=== PATIENT | female | born 1990 | race Two or more races ===

== ENCOUNTER 2020-12-01 05:37 | Emergency (ER) | payer MEDICAID ==
[~2020-12-01] VITALS: Ht 160 cm; Wt 79.3 kg
--- NOTE | 2020-12-01 05:53 | NUR ---
RAHEL FROM [facility]. PT WENT TO HOSPITAL FOR LEFT FACIAL NUMBNESS, JAW BEGAN TO GO NUMB AND BEGAN TO GET WORSE AND THEN MOVED TO [place]. PT DIAGNOSED WITH CEREBRAL VENOUS THROMBOSIS AT [facility] PT A HIGH RISK AND IS 38 WEEKS . DUE DATE IS 12/13/2020 [facility] STATES PT WAS HAVING MILD CONTRACTIONS AT [facility] BUT THEY STOPPED ONCE SHE WAS TRANSPORTED. PT ON 14.3CC HEPERIN DRIP. ATTACHED TO CARD/SP02/BP MOMNITORS, VSS, NADN. USING TRANSLATER [id number] BED IN LOW POSITION, RAILS ENGAGED. CALL LIGHT ON LAP. NADN AT MOMENT. WCTM.
--- NOTE | 2020-12-01 06:00 | NUR ---
ERMD AT BEDSIDE FOR EVAL.
[2020-12-01] MEDS ORDERED: HEPARIN wt. based STROKE protocol MC PRN (06:10)
--- NOTE | 2020-12-01 06:14 | NUR ---
INSTRUCTED TO CONTINUE HEPERIN DRIP THAT PT CAME IN WITH SINCE IT WAS ALMOST DONE.
--- NOTE | 2020-12-01 06:17 | NUR ---
A&OX4, NO NEURO DEFICITS. ER PERFORMED NEURO EXAM
--- NOTE | 2020-12-01 06:17 | NUR ---
PT ON LEFT LATERAL POSITION. MOTHER AT BEDSIDE.
--- NOTE | 2020-12-01 06:28 | NUR ---
PT WEIGHED AT [facility] OF 79.3KG WEIGHT IN TRIAGE WAS NOT PT'S ESTIMATE.
--- NOTE | 2020-12-01 06:29 | NUR ---
SPOKE TO L&D NURSE JOANNA AND WAS TOLD NURSE WILL BE DOWN TO EVALUATE PT AND HER FETUS.
[2020-12-01] MEDS ORDERED: SODIUM CHLORIDE FLUSH 10ML SYR IVF ONE (06:30)
[2020-12-01] MEDS ORDERED: PLEASE ENTER ALLERGIES MC SCH (06:30)
[2020-12-01] MEDS ORDERED: DO NOT GIVE XX PRN (06:30)
--- NOTE | 2020-12-01 06:32 | NUR ---
HAS PT RUNNING AT 18UNITS/KG/HR
[2020-12-01 06:33] LABS: BASOPHILS % (AUTO) 0 % (0-1); EOSINOPHILS % (AUTO) 0 % (1-7); LYMPHOCYTES % (AUTO) 20 % (22-44); MEAN CORPUSCULAR HEMOGLOBIN 32.4 pg (27.0-34.8); MEAN CORPUSCULAR HGB CONC 33.9 g/dL (32.4-35.8); MEAN PLATELET VOLUME 7.7 fL (7.4-10.4); MONOCYTES % (AUTO) 5 % (2-9); NEUTROPHILS % (AUTO) 75 % (42-75); PLATELET COUNT 245 x10^3/uL (130-400); RED BLOOD COUNT 3.64 x10^6/uL (3.82-5.3); RED CELL DISTRIBUTION WIDTH 15.2 % (9.6-15.2)
--- NOTE | 2020-12-01 06:42 | NUR ---
STOPPING HEPERIN FOR 1HOUR AT THIS POINT
[2020-12-01 06:44] LABS: ALBUMIN 2.6 g/dL (3.4-5.0); ANION GAP 12 mmol/L (5-15); CALCIUM 9.2 mg/dL (8.5-10.1); CHLORIDE 107 mmol/L (98-107)
[2020-12-01 06:49] LABS: ALANINE AMINOTRANSFERASE 33 U/L (12-78); ALKALINE PHOSPHATASE 148 U/L (45-117); BILIRUBIN,TOTAL 0.6 mg/dL (0.2-1.0); CREATININE 0.65 mg/dL (0.55-1.02); TOTAL PROTEIN 7.1 g/dL (6.4-8.2)
--- NOTE | 2020-12-01 06:53 | NUR ---
[facility].
[2020-12-01] MEDS ORDERED: HEPARIN 25,000 UNITS/250ML PMX 250 ML IV PRN (07:00)
--- NOTE | 2020-12-01 07:20 | NUR ---
PT ABLE TO AMBULATE STEADILY TO BATHROOM.
--- NOTE | 2020-12-01 07:46 | NUR ---
PT OB IN [facility] IS LATRICE. PT IN MRI AT THIS TIME.
[2020-12-01] MEDS ORDERED: PRENATAL PO (07:55)
[2020-12-01] MEDS ORDERED: IRON PO (07:55)
[2020-12-01] MEDS ORDERED: HEPARIN 25,000 UNITS/250ML PMX 250 ML ONE (08:27)
--- NOTE | 2020-12-01 08:47 | NUR ---
PT BACK IN ROOM FROM MRI. HEPARIN RESTARTED PER EMAR. PT SISTER IN LAW AT BEDSIDE.
--- NOTE | 2020-12-01 08:49 | NUR ---
DR. CHARLES AT [facility] TO CALL BACK TO SEE IF WILL ACCEPT PT. PER L&D, DR. DOMINGUEZ DOESN'T TAKE TRANFERRED PTs AND A CEMENT CAR DUMPER-HAIR SPECIALIST NEEDS TO ACCEPT PT BEFORE THEY CAN COME MONITOR THE BABY.
--- NOTE | 2020-12-01 09:12 | NUR ---
DR. CHARLES WITH [facility] CALLED BACK, SPOKE WITH DR KIRBY TO ACCEPT PT. CONTINUE HEPARIN, MONITOR BABY, CONSULT NEUROLOGY ARE THE RECOMMENDATIONS.
--- NOTE | 2020-12-01 09:33 | NUR ---
PT BEING MONITORED AT THIS TIME BY L&D.
--- NOTE | 2020-12-01 09:34 | NUR ---
EFM PLACED FOR NST ON FETUS, FHT BASELINE 120S WITH 10X10 ACCELS, PT STATES FETUS ACTIVE
--- NOTE | 2020-12-01 10:04 | NUR ---
FHT BASELINE 12OS WITH ACCELS 15X15, STATES FETUS ACTIVE, OCCASIONAL CONTRACTIONS BUT PAINLESS
--- NOTE | 2020-12-01 10:30 | NUR ---
PT REQUIRES A VENAGRAM, {MRV}. MRI HERE CAN NOT DO THIS PROCEDURE. [facility] [address] CAN. INFORMED CHARGE NURSE THAT A NURSE AND SUPERVISOR/PORT DIRECTOR NEEDS TO ACCOMPANY PT TO [facility]. CALLED MRI TO INFORM THEM THIS CAN BE DONE AROUND 1045. CALLED [facility], STATED THEY WILL HAVE DR. LOCKWOOD'S OFFICE CALL BACK.
--- NOTE | 2020-12-01 10:50 | NUR ---
PT UP TO THE BATHROOM. PT AND FAMILY HAVE BEEN MADE AWARE OF PLAN TO TAKE PT TO [facility]. STEELSCOPE OPERATOR STATED THEY WILL TAKE CARE OF RUNNING MRI THERE. AWAITING MRI TO STEAM ROOM ATTENDANT PT
--- NOTE | 2020-12-01 11:06 | NUR ---
PT GOING TO [facility] AT THIS TIME.
--- NOTE | 2020-12-01 11:55 | NUR ---
PT BACK TO ROOM FROM MRI. L&D HERE TO PERFORM VAG EXAM. PT AMBULATING TO BATHROOM AT THIS TIME.
--- NOTE | 2020-12-01 12:10 | NUR ---
VE done per Dr Thomas, posterior, and closed, denies cramping
--- NOTE | 2020-12-01 12:53 | NUR ---
pt resting calmly in bed at this time. no stated needs at this time. pt sister in room with her.
--- NOTE | 2020-12-01 13:21 | NUR ---
PT TO BE DCd, SPOKE WITH DR. CASSIDY, WHO DOES NOT HAVE ANY MORE ORDERS. PT TO FOLLOW UP WITH TATY CHATMAN. PT FAMILY HERE TO TAKE PT AND SISTER HOME.
[2020-12-01 13:37] VITALS: BP 111/60
== END 2020-12-01 13:36 | disposition home or self-care (01) ==
LOC: ED 08:48
DX: O26.893 Other specified pregnancy related conditions, third trimester (principal); I82.890 Acute embolism and thrombosis of other specified veins; R51.9 Headache, unspecified; Z3A.38 38 weeks gestation of pregnancy
CPT/HCPCS: 36415; 70544; 70551; 80053; 85025; 85520; 99285